=== PATIENT | male | born 1960 | race Two or more races ===

== ENCOUNTER 2022-01-15 19:21 | Inpatient (IN) | payer MEDICARE, BC, OTHER ==
[~2022-01-15] VITALS: Ht 182.9 cm; Wt 106.9 kg
[2022-01-15] MEDS ORDERED: CEFEPIME 1GM/ 50ML 50 ML IV ONE (20:00)
[2022-01-15] MEDS ORDERED: ACETAMINOPHEN 325 MG TAB PO ONE (20:00)
[2022-01-15] MEDS ORDERED: VANCOMYCIN 1GM/250ML 250 ML IV ONE (20:00)
[2022-01-15 20:15] LABS: Basophils # (auto) 0 10 ^3/uL (0-0.2); Basophils % (auto) 0.1 % (0.0-2.0); Eosinophils # (auto) 0 10 ^3/uL (0-0.8); Eosinophils % (auto) 0.1 % (0.0-7.0); Hematocrit 27.9 % (41.0-53.0); Hemoglobin 9.2 g/dL (13.5-17.5); Lymphocytes # (auto) 0.7 10 ^3/uL (0.4-5.4); Lymphocytes % (auto) 5.1 % (10.0-50.0); Mean Corpuscular Hemoglobin 27.7 pg (28.0-32.0); Mean Corpuscular Hgb Conc. 32.9 g/dL (32.0-36.0); Mean Corpuscular Volume 84.3 fL (80.0-100.0); Monocytes % (auto) 7.6 % (0.0-12.0); Neutrophils # (auto) 11.1 10 ^3/uL (1.6-8.6); Neutrophils % (auto) 87.1 % (37.0-80.0); Nucleated Red Blood Cells % 0.1 %; Red Blood Cells 3.31 10^6/uL (4.5-5.90); Red Cell Distribution Width 15.4 % (11.8-14.3); White Blood Cell 12.7 10^3/uL (4.4-10.8)
[2022-01-15 20:38] LABS: Albumin 2.2 g/dL (3.4-5.0); BUN/Creatinine Ratio 7.1; Calcium 8.3 mg/dL (8.5-10.1); Potassium 4.9 mmol/L (3.5-5.1)
[2022-01-15 20:41] LABS: Bilirubin, Total 0.7 mg/dL (0.2-1.0); Total Protein 6.5 g/dL (6.4-8.2)
[2022-01-15] MEDS ORDERED: LIDOCAINE 1% HCL (LOCAL ANESTH.) INJ 20ML MDV ONE (21:58)
[2022-01-15] MEDS ORDERED: LIDOCAINE 1% HCL (LOCAL ANESTH.) INJ 20ML MDV ID ONE (22:00)
[2022-01-15] MEDS ORDERED: DEXTROSE (50%) 50ML SYRG IV PRN (22:30)
[2022-01-15] MEDS ORDERED: ONDANSETRON HCL 4 MG/2 ML VIAL IV PRN (22:30)
[2022-01-15] MEDS ORDERED: DOCUSATE SOD 100 MG CAP PO PRN (22:30)
[2022-01-15] MEDS ORDERED: VANCOMYCIN PER PHARMACY 0 MG IV SCH (22:30)
[2022-01-15] MEDS ORDERED: MORPHINE SULFATE INJ 2 MG/ml SYRG IV PRN (23:00)
[2022-01-15] MEDS ORDERED: NITROGLYCERIN 0.4 MG SL TAB SL PRN (23:00)
[2022-01-16] MEDS ORDERED: ALBUMIN 25% 50 ML IV ONE (01:45)
[2022-01-16] MEDS ORDERED: hydrALAZINE HCL 20 MG/ML VL IV PRN (01:45)
[2022-01-16 02:49] VITALS: BP 150/67
[2022-01-16] MEDS: ACETAMINOPHEN 325 MG TAB PO PRN ×2 (03:08→16:52)
[2022-01-16] MEDS: HYDROcodone-ACET 5/325MG TAB PO PRN ×2 (04:54→18:37)
[2022-01-16 05:00] VITALS: BP 145/69
[2022-01-16] MEDS: SODIUM CHLOR 0.9% PF (SALINE LOCK) 10ML VIAL/SYR IV SCH ×3 (06:23→21:06)
[2022-01-16] MEDS: ACCU-CHEK COMFORT CURVE STRIP VI SCH ×4 (06:29→21:08)
[2022-01-16] MEDS: InsuLIN REG 1unit/0.01ml Soln (100units/ml) SC SCH ×4 (06:33→21:09)
[2022-01-16] MEDS: cefTRIAXone 1GM/50ML D5W 50 ML IV SCH (08:52)
[2022-01-16] MEDS: SEVELAMER 800 MG TAB PO SCH ×3 (08:52→18:00)
[2022-01-16 09:00] VITALS: BP 101/57
[2022-01-16] MEDS: ZINC SULFATE 220mg CAP or TAB PO SCH (09:30)
[2022-01-16] MEDS: FAMOTIDINE (10MG/ML) 2ML VL IV SCH ×2 (09:30→21:04)
[2022-01-16] MEDS: ASCORBIC ACID 500 MG TAB PO SCH ×2 (09:31→21:05)
[2022-01-16] MEDS: B-COMPLEX W/ C & FOLIC ACID(NEPHROVITE TAB) PO SCH (09:31)
[2022-01-16] MEDS: HEPARIN SODIUM (PORCINE) 5000 UNITS/ML 1ML VIAL SC SCH ×2 (09:32→21:07)
[2022-01-16 11:34] LABS: Basophils # (auto) 0 10 ^3/uL (0-0.2); Eosinophils # (auto) 0 10 ^3/uL (0-0.8); Monocytes # (auto) 0.6 10 ^3/uL (0-1.3); Neutrophils # (auto) 8.6 10 ^3/uL (1.6-8.6); Neutrophils % (auto) 87.6 % (37.0-80.0); White Blood Cell 9.8 10^3/uL (4.4-10.8)
[2022-01-16 11:36] LABS: Basophils % (auto) 0.2 % (0.0-2.0); Eosinophils % (auto) 0.1 % (0.0-7.0); Hematocrit 25.2 % (41.0-53.0); Hemoglobin 8.2 g/dL (13.5-17.5); Lymphocytes # (auto) 0.5 10 ^3/uL (0.4-5.4); Lymphocytes % (auto) 5.6 % (10.0-50.0); Mean Corpuscular Hemoglobin 27.5 pg (28.0-32.0); Mean Corpuscular Hgb Conc. 32.6 g/dL (32.0-36.0); Mean Corpuscular Volume 84.3 fL (80.0-100.0); Monocytes % (auto) 6.5 % (0.0-12.0); Red Cell Distribution Width 15.6 % (11.8-14.3)
[2022-01-16 11:46] LABS: Potassium 4.9 mmol/L (3.5-5.1)
[2022-01-16 11:54] LABS: Albumin 2.1 g/dL (3.4-5.0); BUN/Creatinine Ratio 7.2; Bilirubin, Total 0.7 mg/dL (0.2-1.0); Calcium 8.1 mg/dL (8.5-10.1)
[2022-01-16 13:00] VITALS: BP 127/46
[2022-01-16 17:00] VITALS: BP 142/54
[2022-01-16] MEDS ORDERED: VANCOMYCIN 1GM/250ML 250 ML IV ONE (18:00)
[2022-01-16] MEDS: ATORVASTATIN 20 MG TAB PO SCH (21:05)
[2022-01-16 22:00] VITALS: BP 114/57
[2022-01-17 05:00] VITALS: BP 125/61
[2022-01-17] MEDS: SODIUM CHLOR 0.9% PF (SALINE LOCK) 10ML VIAL/SYR IV SCH ×3 (05:48→22:11)
[2022-01-17] MEDS: ACCU-CHEK COMFORT CURVE STRIP VI SCH ×4 (05:49→22:12)
[2022-01-17] MEDS: InsuLIN REG 1unit/0.01ml Soln (100units/ml) SC SCH ×4 (05:55→22:13)
[2022-01-17] MEDS ORDERED: SODIUM CHL 0.9% 1000 ML BAG XX ONE (06:45)
[2022-01-17 09:00] VITALS: BP 111/58
[2022-01-17] MEDS: B-COMPLEX W/ C & FOLIC ACID(NEPHROVITE TAB) PO SCH (09:26)
[2022-01-17] MEDS: ZINC SULFATE 220mg CAP or TAB PO SCH (09:27)
[2022-01-17] MEDS: FAMOTIDINE (10MG/ML) 2ML VL IV SCH ×3 (09:27→22:12)
[2022-01-17] MEDS: ASPirin 81 mg TAB PO SCH (09:27)
[2022-01-17] MEDS: SEVELAMER 800 MG TAB PO SCH ×3 (09:27→17:39)
[2022-01-17] MEDS: ASCORBIC ACID 500 MG TAB PO SCH (09:27)
[2022-01-17] MEDS: HEPARIN SODIUM (PORCINE) 5000 UNITS/ML 1ML VIAL SC SCH ×2 (09:36→22:10)
[2022-01-17 13:00] VITALS: BP 110/60
[2022-01-17] MEDS ORDERED: VANCOMYCIN 1GM/250ML 250 ML IV ONE (16:00)
[2022-01-17] MEDS: cefTRIAXone 1GM/50ML D5W 50 ML IV SCH (16:10)
[2022-01-17 17:00] VITALS: BP 112/51
[2022-01-17] MEDS ORDERED: EPOETIN ALFA-EPBX 4,000 UNIT/ML VIAL SC ONE (21:00)
[2022-01-17 22:00] VITALS: BP 107/47
[2022-01-17] MEDS: ATORVASTATIN 20 MG TAB PO SCH (22:11)
[2022-01-18 05:00] VITALS: BP 114/46
[2022-01-18 06:09] LABS: Basophils # (auto) 0 10 ^3/uL (0-0.2); Eosinophils # (auto) 0.1 10 ^3/uL (0-0.8); Lymphocytes # (auto) 0.8 10 ^3/uL (0.4-5.4); Monocytes # (auto) 0.5 10 ^3/uL (0-1.3)
[2022-01-18 06:12] LABS: Basophils % (auto) 0.5 % (0.0-2.0); Eosinophils % (auto) 1.3 % (0.0-7.0); Hematocrit 24.6 % (41.0-53.0); Hemoglobin 8.1 g/dL (13.5-17.5); Lymphocytes % (auto) 12.8 % (10.0-50.0); Mean Corpuscular Hemoglobin 27.5 pg (28.0-32.0); Mean Corpuscular Volume 83.3 fL (80.0-100.0); Monocytes % (auto) 8.7 % (0.0-12.0); Neutrophils # (auto) 4.5 10 ^3/uL (1.6-8.6); Neutrophils % (auto) 76.7 % (37.0-80.0); Red Blood Cells 2.96 10^6/uL (4.5-5.90); Red Cell Distribution Width 15.9 % (11.8-14.3); White Blood Cell 5.9 10^3/uL (4.4-10.8)
[2022-01-18] MEDS: SODIUM CHLOR 0.9% PF (SALINE LOCK) 10ML VIAL/SYR IV SCH ×3 (06:22→22:11)
[2022-01-18 06:29] LABS: Albumin 1.8 g/dL (3.4-5.0); Calcium 8.2 mg/dL (8.5-10.1); Potassium 4.1 mmol/L (3.5-5.1)
[2022-01-18 06:33] LABS: Bilirubin, Total 0.5 mg/dL (0.2-1.0); Total Protein 5.8 g/dL (6.4-8.2)
[2022-01-18 06:37] LABS: INR 1.1 (0.9-1.15); Partial Thromboplastin Time 27.4 sec (24.6-33.4)
[2022-01-18] MEDS: ACCU-CHEK COMFORT CURVE STRIP VI SCH ×4 (06:44→22:11)
[2022-01-18] MEDS: InsuLIN REG 1unit/0.01ml Soln (100units/ml) SC SCH ×4 (06:45→22:24)
[2022-01-18 08:20] VITALS: BP 100/53
[2022-01-18] MEDS: SEVELAMER 800 MG TAB PO SCH ×3 (08:26→17:53)
[2022-01-18] MEDS ORDERED: ADENOSINE 95 MG in GIVE UN-DILUTED 0 ML IV STA (09:17)
[2022-01-18] MEDS: ASPirin 81 mg TAB PO SCH (10:07)
[2022-01-18] MEDS: ZINC SULFATE 220mg CAP or TAB PO SCH (10:07)
[2022-01-18] MEDS: FAMOTIDINE (10MG/ML) 2ML VL IV SCH ×2 (10:07→22:10)
[2022-01-18] MEDS: cefTRIAXone 1GM/50ML D5W 50 ML IV SCH (10:07)
[2022-01-18] MEDS: ASCORBIC ACID 500 MG TAB PO SCH (10:08)
[2022-01-18] MEDS: B-COMPLEX W/ C & FOLIC ACID(NEPHROVITE TAB) PO SCH (10:08)
[2022-01-18] MEDS: HEPARIN SODIUM (PORCINE) 5000 UNITS/ML 1ML VIAL SC SCH ×2 (10:09→22:23)
[2022-01-18 12:20] VITALS: BP 104/57
[2022-01-18 16:15] VITALS: BP 116/56
[2022-01-18] MEDS ORDERED: DAKINS HALF STR 0.25% (NaHypochlorite) 473 ML TOPICAL SOL TOP SCH (21:07)
[2022-01-18] MEDS ORDERED: PREG-110 PO (21:56)
[2022-01-18 22:00] VITALS: BP 107/53
[2022-01-18] MEDS: HYDROcodone-ACET 5/325MG TAB PO PRN (22:10)
[2022-01-18] MEDS: ATORVASTATIN 20 MG TAB PO SCH (22:10)
[2022-01-18] MEDS: DAKINS QUARTER STR 0.125% (NaHypochlorite) 473 ML TOPICAL SOL TOP SCH (22:25)
[2022-01-18] MEDS ORDERED: PREGABALIN 25 MG CAP PO ONE (23:15)
[2022-01-19] MEDS: ACCU-CHEK COMFORT CURVE STRIP VI SCH ×4 (06:46→22:00)
[2022-01-19] MEDS: SODIUM CHLOR 0.9% PF (SALINE LOCK) 10ML VIAL/SYR IV SCH ×3 (06:46→22:00)
[2022-01-19] MEDS: InsuLIN REG 1unit/0.01ml Soln (100units/ml) SC SCH ×4 (06:47→22:00)
[2022-01-19] MEDS ORDERED: SODIUM CHL 0.9% 1000 ML BAG XX ONE (07:00)
[2022-01-19] MEDS: SEVELAMER 800 MG TAB PO SCH ×3 (08:25→17:20)
[2022-01-19 09:00] VITALS: BP 99/67
[2022-01-19] MEDS: cefTRIAXone 1GM/50ML D5W 50 ML IV SCH (09:57)
[2022-01-19] MEDS: ASPirin 81 mg TAB PO SCH (09:58)
[2022-01-19] MEDS: B-COMPLEX W/ C & FOLIC ACID(NEPHROVITE TAB) PO SCH (09:58)
[2022-01-19] MEDS: ZINC SULFATE 220mg CAP or TAB PO SCH (09:58)
[2022-01-19] MEDS: FAMOTIDINE (10MG/ML) 2ML VL IV SCH ×2 (09:58→22:00)
[2022-01-19] MEDS: ASCORBIC ACID 500 MG TAB PO SCH (09:58)
[2022-01-19] MEDS: DAKINS QUARTER STR 0.125% (NaHypochlorite) 473 ML TOPICAL SOL TOP SCH ×2 (11:31)
[2022-01-19] MEDS: ALBUMIN 25% 100 ML IV SCH ×2 (12:00→13:00)
[2022-01-19 13:00] VITALS: BP 99/41
[2022-01-19] MEDS: HEPARIN SODIUM (PORCINE) 5000 UNITS/ML 1ML VIAL SC SCH ×2 (13:19→22:00)
[2022-01-19 17:05] VITALS: BP 122/61
[2022-01-19] MEDS ORDERED: EPOETIN ALFA-EPBX 10,000 UNIT/1ML VIAL SC ONE (21:00)
[2022-01-19] MEDS: ATORVASTATIN 20 MG TAB PO SCH (22:00)
[2022-01-19 22:56] VITALS: BP 128/63
[2022-01-20 05:43] VITALS: BP 136/63
[2022-01-20] MEDS: SODIUM CHLOR 0.9% PF (SALINE LOCK) 10ML VIAL/SYR IV SCH ×3 (06:08→21:55)
[2022-01-20] MEDS: ACCU-CHEK COMFORT CURVE STRIP VI SCH ×4 (07:00→21:55)
[2022-01-20] MEDS: InsuLIN REG 1unit/0.01ml Soln (100units/ml) SC SCH ×4 (07:00→22:00)
[2022-01-20] MEDS ORDERED: ceFAZolin 1GM/50ML 100 ML IV ONE (07:28)
[2022-01-20] MEDS: SEVELAMER 800 MG TAB PO SCH ×2 (08:00→18:00)
[2022-01-20] MEDS: cefTRIAXone 1GM/50ML D5W 50 ML IV SCH (09:00)
[2022-01-20] MEDS ORDERED: MIDAZOLAM HCL 2MG/2ML 2ml VIAL (1mg/ml) ONE (09:34)
[2022-01-20] MEDS ORDERED: MORPHINE SULF PF 5 MG/10 ML VIAL ONE (09:34)
[2022-01-20] MEDS ORDERED: fentaNYL CITRATE 100 MCG/2 ML VL ONE (09:34)
[2022-01-20] MEDS ORDERED: TETRACAINE 1% INJ 2 ML VIAL IJ ONE (09:36)
[2022-01-20] MEDS ORDERED: POVIDONE IODINE 10 % TOPICAL OINT 30GM TOP ONE (09:40)
[2022-01-20] MEDS: B-COMPLEX W/ C & FOLIC ACID(NEPHROVITE TAB) PO SCH (10:00)
[2022-01-20] MEDS: DAKINS QUARTER STR 0.125% (NaHypochlorite) 473 ML TOPICAL SOL TOP SCH (10:00)
[2022-01-20] MEDS: ZINC SULFATE 220mg CAP or TAB PO SCH (10:00)
[2022-01-20] MEDS: ASPirin 81 mg TAB PO SCH (10:00)
[2022-01-20] MEDS: ASCORBIC ACID 500 MG TAB PO SCH (10:00)
[2022-01-20] MEDS ORDERED: LABETALOL HCL 5 MG/ML 4ML SYRINGE IV PRN (10:15)
[2022-01-20] MEDS ORDERED: NALBUPHINE HCL 10 MG/1ml INJECTION SUBCUT ONE (10:15)
[2022-01-20] MEDS ORDERED: diphenhdrAMINE HCL 50 MG/1 ML VL IV PRN (10:15)
[2022-01-20] MEDS ORDERED: DexAMETHasone SOD PHOS 10MG/1ML VIAL INJ IV PRN (10:15)
[2022-01-20] MEDS ORDERED: ONDANSETRON HCL 4 MG/2 ML VIAL IV PRN (10:15)
[2022-01-20] MEDS ORDERED: MIDAZOLAM HCL 2MG/2ML 2ml VIAL (1mg/ml) IV PRN (10:15)
[2022-01-20] MEDS ORDERED: HYDROmorphone HCL 2 MG/ML VL/or syr IV PRN (10:15)
[2022-01-20] MEDS ORDERED: ACCU-CHEK COMFORT CURVE STRIP VI ONE (10:15)
[2022-01-20] MEDS ORDERED: ePHEDrine SULFATE 50 MG/ML AMP IV PRN (10:15)
[2022-01-20] MEDS ORDERED: NALOXONE HCL 0.4 MG/ML VIAL IV PRN (10:15)
[2022-01-20] MEDS ORDERED: DexAMETHasone SOD PHOS 10MG/1ML VIAL INJ IV ONE (14:32)
[2022-01-20] MEDS ORDERED: PROPOFOL 10 MG/ML 20 ML IV ONE (14:32)
[2022-01-20 17:00] VITALS: BP 95/54
[2022-01-20] MEDS: FAMOTIDINE (10MG/ML) 2ML VL IV SCH ×2 (17:13→21:55)
[2022-01-20] MEDS: HYDROcodone-ACET 5/325MG TAB PO PRN ×2 (17:36→21:57)
[2022-01-20] MEDS ORDERED: EPOETIN ALFA-EPBX 10,000 UNIT/1ML VIAL SC ONE (21:00)
[2022-01-20] MEDS: ATORVASTATIN 20 MG TAB PO SCH (21:55)
[2022-01-20 22:00] VITALS: BP 101/52
[2022-01-20] MEDS: MORPHINE SULFATE INJ 2 MG/ml SYRG IV PRN (23:25)
[2022-01-21] MEDS: HYDROcodone-ACET 5/325MG TAB PO PRN ×2 (01:59→09:26)
[2022-01-21 05:00] VITALS: BP 120/57
[2022-01-21] MEDS: SODIUM CHLOR 0.9% PF (SALINE LOCK) 10ML VIAL/SYR IV SCH ×3 (05:24→23:02)
[2022-01-21] MEDS: MORPHINE SULFATE INJ 2 MG/ml SYRG IV PRN (05:25)
[2022-01-21 06:00] LABS: Hematocrit 25.9 % (41.0-53.0); Hemoglobin 8.3 g/dL (13.5-17.5); Mean Corpuscular Hemoglobin 27.4 pg (28.0-32.0); Mean Corpuscular Hgb Conc. 32.2 g/dL (32.0-36.0); Red Blood Cells 3.04 10^6/uL (4.5-5.90); Red Cell Distribution Width 15.4 % (11.8-14.3); White Blood Cell 6.1 10^3/uL (4.4-10.8)
[2022-01-21 06:01] LABS: Basophils % (manual) 0 (0.0-2.0); Blast Cells 0; Eosinophils % (manual) 0 (0-7); Promyelocytes % 0; Reactive Lymphocytes 0
[2022-01-21 06:12] LABS: Calcium 7.7 mg/dL (8.5-10.1); Potassium 4.4 mmol/L (3.5-5.1)
[2022-01-21] MEDS: ACCU-CHEK COMFORT CURVE STRIP VI SCH ×4 (06:18→23:02)
[2022-01-21] MEDS: InsuLIN REG 1unit/0.01ml Soln (100units/ml) SC SCH ×4 (06:19→22:00)
[2022-01-21 07:06] LABS: Band Neutrophils % (manual) 11; Lymphocytes % (manual) 17 (10.0-50.0); Metamyelocytes % 1; Monocytes % (manual) 2 (0-12); Myelocytes % 2
[2022-01-21 09:00] VITALS: BP 109/64
[2022-01-21] MEDS: cefTRIAXone 1GM/50ML D5W 50 ML IV SCH (09:14)
[2022-01-21] MEDS: SEVELAMER 800 MG TAB PO SCH ×4 (09:14→18:00)
[2022-01-21] MEDS: DAKINS QUARTER STR 0.125% (NaHypochlorite) 473 ML TOPICAL SOL TOP SCH (10:00)
[2022-01-21] MEDS: ASPirin 81 mg TAB PO SCH (11:08)
[2022-01-21] MEDS: ZINC SULFATE 220mg CAP or TAB PO SCH (11:09)
[2022-01-21] MEDS: B-COMPLEX W/ C & FOLIC ACID(NEPHROVITE TAB) PO SCH (11:09)
[2022-01-21] MEDS: FAMOTIDINE (10MG/ML) 2ML VL IV SCH ×2 (11:09→23:01)
[2022-01-21] MEDS: ASCORBIC ACID 500 MG TAB PO SCH (11:09)
[2022-01-21] MEDS ORDERED: KETOROLAC TROMETH 30 MG/ML 1ML VIAL IV PRN (12:15)
[2022-01-21] MEDS ORDERED: diphenhdrAMINE HCL 50 MG/1 ML VL IV PRN (12:15)
[2022-01-21 13:00] VITALS: BP 103/68
[2022-01-21] MEDS: DOXYCYCLINE 100MG/250ML 250 ML IV SCH (14:12)
[2022-01-21] MEDS ORDERED: VANCOMYCIN 500 MG in D5W 5% 100 ML IV ONE (15:00)
[2022-01-21] MEDS: ACETAMINOPHEN 325 MG TAB PO PRN (15:45)
[2022-01-21 17:00] VITALS: BP 91/50
[2022-01-21 22:00] VITALS: BP 153/43
[2022-01-21] MEDS ORDERED: GABAPENTIN 300 MG CAP PO SCH (22:00)
[2022-01-21] MEDS: GABAPENTIN 300 MG CAP PO SCH (23:02)
[2022-01-21] MEDS: ATORVASTATIN 20 MG TAB PO SCH (23:02)
[2022-01-22] MEDS: DOXYCYCLINE 100MG/250ML 250 ML IV SCH ×2 (00:08→11:33)
[2022-01-22 05:00] VITALS: BP 148/30
[2022-01-22] MEDS: InsuLIN REG 1unit/0.01ml Soln (100units/ml) SC SCH ×4 (05:37→22:00)
[2022-01-22] MEDS: SODIUM CHLOR 0.9% PF (SALINE LOCK) 10ML VIAL/SYR IV SCH ×3 (05:39→22:00)
[2022-01-22] MEDS: ACCU-CHEK COMFORT CURVE STRIP VI SCH ×4 (05:39→22:00)
[2022-01-22 06:00] LABS: Hematocrit 25.2 % (41.0-53.0); Red Blood Cells 2.95 10^6/uL (4.5-5.90)
[2022-01-22 06:03] LABS: Mean Corpuscular Hemoglobin 27.1 pg (28.0-32.0); Mean Corpuscular Hgb Conc. 31.7 g/dL (32.0-36.0); Mean Corpuscular Volume 85.3 fL (80.0-100.0)
[2022-01-22 06:09] LABS: Basophils % (manual) 0 (0.0-2.0); Blast Cells 0; Promyelocytes % 0; Reactive Lymphocytes 0
[2022-01-22 06:24] LABS: Albumin 1.9 g/dL (3.4-5.0); Calcium 7.3 mg/dL (8.5-10.1)
[2022-01-22 06:29] LABS: BUN/Creatinine Ratio 6.7; Bilirubin, Total 0.4 mg/dL (0.2-1.0); Total Protein 5.5 g/dL (6.4-8.2)
[2022-01-22 07:27] LABS: Band Neutrophils % (manual) 18; Eosinophils % (manual) 1 (0-7); Lymphocytes % (manual) 16 (10.0-50.0); Metamyelocytes % 13; Monocytes % (manual) 2 (0-12); Myelocytes % 1
[2022-01-22] MEDS: SEVELAMER 800 MG TAB PO SCH ×3 (08:00→18:01)
[2022-01-22 09:00] VITALS: BP 106/44
[2022-01-22] MEDS: DAKINS QUARTER STR 0.125% (NaHypochlorite) 473 ML TOPICAL SOL TOP SCH (10:22)
[2022-01-22] MEDS: B-COMPLEX W/ C & FOLIC ACID(NEPHROVITE TAB) PO SCH (11:31)
[2022-01-22] MEDS: ZINC SULFATE 220mg CAP or TAB PO SCH (11:31)
[2022-01-22] MEDS: ASPirin 81 mg TAB PO SCH (11:31)
[2022-01-22] MEDS: GABAPENTIN 300 MG CAP PO SCH ×2 (11:32→22:00)
[2022-01-22] MEDS: ASCORBIC ACID 500 MG TAB PO SCH (11:32)
[2022-01-22 13:00] VITALS: BP 90/55
[2022-01-22] MEDS ORDERED: LORazepam 2MG/ML-1ML VIAL IV PRN (15:00)
[2022-01-22] MEDS ORDERED: LORazepam 0.5 MG TAB PO PRN (15:15)
[2022-01-22 17:00] VITALS: BP 105/64
[2022-01-22] MEDS ORDERED: EPOETIN ALFA-EPBX 10,000 UNIT/1ML VIAL SC ONE (21:00)
[2022-01-22] MEDS: ATORVASTATIN 20 MG TAB PO SCH (22:00)
[2022-01-23] MEDS: DOXYCYCLINE 100MG/250ML 250 ML IV SCH ×2 (01:53→12:52)
[2022-01-23 03:03] VITALS: BP 119/61
[2022-01-23 05:55] VITALS: BP 141/66
[2022-01-23] MEDS: ACCU-CHEK COMFORT CURVE STRIP VI SCH ×4 (06:59→21:46)
[2022-01-23] MEDS: SODIUM CHLOR 0.9% PF (SALINE LOCK) 10ML VIAL/SYR IV SCH ×3 (07:00→21:45)
[2022-01-23] MEDS: InsuLIN REG 1unit/0.01ml Soln (100units/ml) SC SCH ×4 (07:00→22:00)
[2022-01-23] MEDS: ONDANSETRON HCL 4 MG/2 ML VIAL IV PRN (08:35)
[2022-01-23] MEDS: B-COMPLEX W/ C & FOLIC ACID(NEPHROVITE TAB) PO SCH (08:35)
[2022-01-23] MEDS: SEVELAMER 800 MG TAB PO SCH ×3 (08:35→17:18)
[2022-01-23] MEDS: ASPirin 81 mg TAB PO SCH (08:35)
[2022-01-23] MEDS: GABAPENTIN 300 MG CAP PO SCH ×2 (08:35→21:45)
[2022-01-23] MEDS: MORPHINE SULFATE INJ 2 MG/ml SYRG IV PRN (08:53)
[2022-01-23 09:00] VITALS: BP 123/71
[2022-01-23] MEDS: DAKINS QUARTER STR 0.125% (NaHypochlorite) 473 ML TOPICAL SOL TOP SCH (10:00)
[2022-01-23] MEDS: HYDROcodone-ACET 5/325MG TAB PO PRN ×3 (13:11→21:46)
[2022-01-23 17:00] VITALS: BP 122/55
[2022-01-23] MEDS: ATORVASTATIN 20 MG TAB PO SCH (21:45)
[2022-01-23 22:00] VITALS: BP 96/51
[2022-01-24] MEDS: DOXYCYCLINE 100MG/250ML 250 ML IV SCH ×2 (00:40→12:27)
[2022-01-24 05:00] VITALS: BP 93/35
[2022-01-24] MEDS: ACCU-CHEK COMFORT CURVE STRIP VI SCH ×4 (06:35→21:40)
[2022-01-24] MEDS: SODIUM CHLOR 0.9% PF (SALINE LOCK) 10ML VIAL/SYR IV SCH ×3 (06:35→21:22)
[2022-01-24] MEDS: HYDROcodone-ACET 5/325MG TAB PO PRN ×3 (06:36→18:01)
[2022-01-24] MEDS: InsuLIN REG 1unit/0.01ml Soln (100units/ml) SC SCH ×4 (06:39→21:39)
[2022-01-24] MEDS: B-COMPLEX W/ C & FOLIC ACID(NEPHROVITE TAB) PO SCH (08:40)
[2022-01-24] MEDS: ASPirin 81 mg TAB PO SCH (08:40)
[2022-01-24] MEDS: SEVELAMER 800 MG TAB PO SCH ×3 (08:40→18:00)
[2022-01-24] MEDS: GABAPENTIN 300 MG CAP PO SCH ×2 (08:40→21:23)
[2022-01-24 09:00] VITALS: BP 120/66
[2022-01-24] MEDS: DAKINS QUARTER STR 0.125% (NaHypochlorite) 473 ML TOPICAL SOL TOP SCH (10:00)
[2022-01-24] MEDS ORDERED: FAMOTIDINE (10MG/ML) 2ML VL IV SCH (10:00)
[2022-01-24] MEDS: ONDANSETRON HCL 4 MG/2 ML VIAL IV PRN (12:26)
[2022-01-24 13:00] VITALS: BP 122/75
[2022-01-24] MEDS ORDERED: PROMETHAZINE HCL 25 MG/ML 1ML IV PRN (15:45)
[2022-01-24 17:00] VITALS: BP 134/70
[2022-01-24] MEDS: ATORVASTATIN 20 MG TAB PO SCH (21:22)
[2022-01-25] MEDS: MORPHINE SULFATE INJ 2 MG/ml SYRG IV PRN ×2 (00:47→06:57)
[2022-01-25] MEDS: DOXYCYCLINE 100MG/250ML 250 ML IV SCH ×2 (00:48→13:15)
[2022-01-25] MEDS: SODIUM CHLOR 0.9% PF (SALINE LOCK) 10ML VIAL/SYR IV SCH ×3 (06:00→21:31)
[2022-01-25] MEDS: ACCU-CHEK COMFORT CURVE STRIP VI SCH ×4 (06:12→21:33)
[2022-01-25] MEDS: InsuLIN REG 1unit/0.01ml Soln (100units/ml) SC SCH ×4 (06:43→21:32)
[2022-01-25 08:23] VITALS: BP 119/57
[2022-01-25] MEDS: B-COMPLEX W/ C & FOLIC ACID(NEPHROVITE TAB) PO SCH (08:29)
[2022-01-25] MEDS: GABAPENTIN 300 MG CAP PO SCH ×2 (08:29→21:35)
[2022-01-25] MEDS: ASPirin 81 mg TAB PO SCH (08:29)
[2022-01-25] MEDS: SEVELAMER 800 MG TAB PO SCH ×3 (08:29→18:27)
[2022-01-25] MEDS: HYDROcodone-ACET 5/325MG TAB PO PRN ×3 (08:30→18:27)
[2022-01-25] MEDS: DAKINS QUARTER STR 0.125% (NaHypochlorite) 473 ML TOPICAL SOL TOP SCH (10:00)
[2022-01-25] MEDS ORDERED: FAMOTIDINE 20 MG TAB PO SCH (10:00)
[2022-01-25] MEDS ORDERED: SODIUM CHL 0.9% 1000 ML BAG XX ONE (10:15)
[2022-01-25 12:00] VITALS: BP 100/60
[2022-01-25] MEDS ORDERED: DOXYCYCLINE 100 MG TAB/CAP PO ONE (13:45)
[2022-01-25] MEDS ORDERED: VANCOMYCIN 1GM/250ML 250 ML IV ONE (16:00)
[2022-01-25 17:15] VITALS: BP 97/60
[2022-01-25] MEDS ORDERED: EPOETIN ALFA-EPBX 10,000 UNIT/1ML VIAL SC ONE (21:00)
[2022-01-25] MEDS: ATORVASTATIN 20 MG TAB PO SCH (21:32)
[2022-01-25] MEDS: DOXYCYCLINE 100 MG TAB/CAP PO SCH (21:32)
[2022-01-25] MEDS: ACETAMINOPHEN 325 MG TAB PO PRN (21:34)
[2022-01-25 21:50] VITALS: BP 123/57
[2022-01-26 04:50] VITALS: BP 105/68
[2022-01-26] MEDS: SODIUM CHLOR 0.9% PF (SALINE LOCK) 10ML VIAL/SYR IV SCH (05:46)
[2022-01-26] MEDS: ACCU-CHEK COMFORT CURVE STRIP VI SCH (06:24)
[2022-01-26] MEDS: InsuLIN REG 1unit/0.01ml Soln (100units/ml) SC SCH (06:25)
[2022-01-26 08:00] VITALS: BP 138/71
[2022-01-26] MEDS: SEVELAMER 800 MG TAB PO SCH (08:00)
[2022-01-26 09:00] VITALS: BP 138/71
[2022-01-26] MEDS ORDERED: EPOETIN ALFA-EPBX 10,000 UNIT/1ML VIAL IV ONE (09:30)
[2022-01-26] MEDS: ASPirin 81 mg TAB PO SCH (10:28)
[2022-01-26] MEDS: B-COMPLEX W/ C & FOLIC ACID(NEPHROVITE TAB) PO SCH (10:28)
[2022-01-26] MEDS: DOXYCYCLINE 100 MG TAB/CAP PO SCH (10:29)
[2022-01-26] MEDS: GABAPENTIN 300 MG CAP PO SCH (10:29)
[2022-01-26 11:00] VITALS: BP 138/71
[2022-01-26] MEDS: HYDROcodone-ACET 5/325MG TAB PO PRN (11:34)
== END 2022-01-26 11:57 | DRG 853 ==
LOC: EDBD 19:21 → ER 19:21 → TELE 22:58 → TELE-EAST 01-16 01:45 → EAST 01-17 21:36 → TELE-EAST 01-21 14:06 → EAST 01-24 22:24
PROVIDERS: ADMIT Nurse Practitioner Family; ATTEND Internal Medicine
PROC: 5A1D70Z Performance of Urinary Filtration, Intermittent, Less than 6 Hours Per Day (ICD-10-PCS; 2022-01-17)
PROC: 5A1D70Z Performance of Urinary Filtration, Intermittent, Less than 6 Hours Per Day (ICD-10-PCS; 2022-01-20)
PROC: 0Y6H0Z1 Detachment at Right Lower Leg, High, Open Approach (ICD-10-PCS; principal; 2022-01-20 09:44)
PROC: 5A1D70Z Performance of Urinary Filtration, Intermittent, Less than 6 Hours Per Day (ICD-10-PCS; 2022-01-22)
PROC: 5A1D70Z Performance of Urinary Filtration, Intermittent, Less than 6 Hours Per Day (ICD-10-PCS; 2022-01-25)
PROC: 5A1D70Z Performance of Urinary Filtration, Intermittent, Less than 6 Hours Per Day (ICD-10-PCS; 2022-01-26)
DX: A41.01 Sepsis due to Methicillin susceptible Staphylococcus aureus (principal); G92.8 Other toxic encephalopathy; R65.21 Severe sepsis with septic shock; N18.6 End stage renal disease; I21.4 Non-ST elevation (NSTEMI) myocardial infarction; E87.1 Hypo-osmolality and hyponatremia; L03.115 Cellulitis of right lower limb; M86.18 Other acute osteomyelitis, other site; L02.611 Cutaneous abscess of right foot; N17.9 Acute kidney failure, unspecified; I12.0 Hypertensive chronic kidney disease with stage 5 chronic kidney disease or end stage renal disease; E66.01 Morbid (severe) obesity due to excess calories; Z20.822 Contact with and (suspected) exposure to COVID-19; F32.A Depression, unspecified; E11.51 Type 2 diabetes mellitus with diabetic peripheral angiopathy without gangrene; D63.1 Anemia in chronic kidney disease; E11.69 Type 2 diabetes mellitus with other specified complication; I99.8 Other disorder of circulatory system; E78.5 Hyperlipidemia, unspecified; I25.10 Atherosclerotic heart disease of native coronary artery without angina pectoris; Z99.2 Dependence on renal dialysis; Z90.49 Acquired absence of other specified parts of digestive tract; Z68.33 Body mass index [BMI] 33.0-33.9, adult; Z79.4 Long term (current) use of insulin; E11.22 Type 2 diabetes mellitus with diabetic chronic kidney disease; E11.65 Type 2 diabetes mellitus with hyperglycemia
CPT/HCPCS: 36415; 70450; 71045; 73700; 76775; 78452; 80048; 80053; 80202; 82962; 83036; 83605; 84484; 85007; 85025; 85027; 85610; 85730; 86850; 86900; 86901; 87040; 87077; 87147; 87186; 87340; 90935; 93005; 93017; 93306; 93925; 95819; 96365; 96367; 97110; 97530; 99291; G0378; J0153; J0690; J0696; J1100; J1642; J1815; J1885; J2001; J2250; J2405; J2704; J3490; J7060